=== PATIENT | male | born 1965 | race Asian ===

== ENCOUNTER → 2017-06-26 | Outpatient (CLI) | payer BC ==
[2017-06-26 08:27] LABS: BASOPHILS % 0.8 % (0.0-2.0); EOSINOPHILS # 0.1 10^3/ul (0.0-0.5); EOSINOPHILS % 1.8 % (0.0-7.0); HEMATOCRIT 44.5 % (42.0-52.0); HEMOGLOBIN 15.1 g/dl (14.0-18.0); LYMPHOCYTES # 1.7 10^3/ul (0.8-2.9); LYMPHOCYTES % 35.5 % (15.0-51.0); MEAN CORPUSCULAR HGB CONC 33.9 g/dl (32.0-37.0); MEAN CORPUSCULAR VOLUME 88.5 fl (82.0-101.0); MEAN PLATELET VOLUME 9.4 fl (7.4-10.4); MONOCYTE # 0.3 10^3/ul (0.3-0.9); MONOCYTES % 5.1 % (0.0-11.0); NEUTROPHIL # 2.8 10^3/ul (1.6-7.5); NEUTROPHILS % 56.6 % (39.0-77.0); PLATELET COUNT 246 10^3/UL (140-415); RED BLOOD COUNT 5.03 10^6/ul (4.70-6.10); WHITE BLOOD COUNT 4.9 10^3/ul (4.8-10.8)
[2017-06-26 08:30] LABS: ADD UMIC NO; UR ASCORBIC ACID NEGATIVE (NEGATIVE); UR BILIRUBIN (Dip) NEGATIVE (NEGATIVE); UR BLOOD (Dip) NEGATIVE (NEGATIVE); UR CLARITY CLEAR (CLEAR); UR COLOR STRAW (YELLOW); UR GLUCOSE (Dip) NEGATIVE (NEGATIVE); UR KETONES (Dip) NEGATIVE (NEGATIVE); UR LEUKOCYTE ESTERASE (Dip) NEGATIVE Leu/ul (NEGATIVE); UR NITRITE (Dip) NEGATIVE (NEGATIVE); UR SPECIFIC GRAVITY (Dip) 1.006 (1.003-1.030); UR TOTAL PROTEIN (Dip) NEGATIVE (NEGATIVE); UR UROBILINOGEN (Dip) NEGATIVE (NEGATIVE)
--- NOTE | 2017-06-26 08:47 | RADRPT ---
PROCEDURE: XR Chest. CLINICAL INDICATION: Screening, routine physical exam, annual physical exam, health care [facility] TECHNIQUE: PA and lateral chest x-ray. COMPARISON: 09/15/2015 chest radiograph. FINDINGS: The lungs are clear. No pleural effusion or pneumothorax. The cardiomediastinal silhouette is unremarkable. Left shoulder arthroplasty partially visualized. IMPRESSION: No evidence of acute air space infiltrates. Unchanged from the previous examination. RPTAT: AADD .Terry Park MD, MD Date Time Electronically viewed and signed by .Terry Park MD, MD on 06/26/2017 08:46 .B/
[2017-06-26 08:57] LABS: ALBUMIN 4.9 g/dl (3.3-4.9); ALBUMIN/GLOBULIN RATIO 1.58; BILIRUBIN,INDIRECT 0.8 mg/dl (0-1.1); BILIRUBIN,TOTAL 0.8 mg/dl (0.2-1.3); CALCIUM 9.5 mg/dl (8.4-10.2); CHOL/HDL RATIO 4.4 RATIO; CREATININE 0.96 mg/dl (0.61-1.24); POTASSIUM 4.5 mmol/L (3.5-5.1); URIC ACID 6.1 mg/dl (3.1-7.9)
[2017-06-26 09:09] LABS: T3 UPTAKE 34.9 % (23.5-40.5)
[2017-06-26 09:22] LABS: THYROID STIMULATING HORMONE 1.61 MIU/L (0.465-4.680)
[2017-06-27 15:12] LABS: CREATININE, RANDOM URINE 57 mg/dL (20-370); MICROALBUMIN <0.2 mg/dL; MICROALBUMIN/CREATININE RATIO NOTE (<30)
== END | disposition home or self-care (01) ==
LOC: LAB 07:46
PROVIDERS: ATTEND Internal Medicine
DX: Z00.00 Encounter for general adult medical examination without abnormal findings (principal)
CPT/HCPCS: 71020; 80053; 80061; 81003; 82043; 83036; 84436; 84443; 84479; 84560; 85025